=== PATIENT | female | born 1985 | race Caucasian/White ===

== ENCOUNTER 2020-10-06 11:19 | Observation (INO) ==
[2020-10-06 12:42] LABS: Amorphous Sediment,Urine Few per hpf (None-Few); Bacteria,Urine Few per hpf (None-Few); Bilirubin,Urine Negative (Negative); Blood,Urine Negative (Negative); Clarity,Urine Turbid (Clear); Color,Urine Light-Yellow (Yellow); Glucose,Urine (UA) Normal (Normal); Ketones,Urine Negative (Negative); Leukocyte Esterase,Urine Negative (Negative); Mucus,Urine Few per lpf (None-Few); Nitrite,Urine Negative (Negative); PH,Urine 6.5 pH Units (5.0-8.0); Protein,Urine Negative (Neg-Trace); RBC,Urine 0-3 per hpf (0-3); Specific Gravity,Urine 1.013 (1.010-1.025); Squamous Epithelial Cell,Urine Moderate per hpf (None-Few); Urobilinogen,Urine Normal (Normal); WBC,Urine 0-3 per hpf (0-3)
[2020-10-06 13:17] LABS: Basophils % 0.4 %; Eosinophils # 0.1 K/mcL (0.0-0.6); Eosinophils % 1.2 %; Hematocrit 36.2 % (35.3-44.9); Hemoglobin 12.2 g/dL (11.5-15.4); Immature Granulocytes % 0.7 % (0-4); Lymphocytes % 22.7 %; Mean Corpuscular HGB Conc 33.7 g/dL (31.6-35.5); Mean Corpuscular Hemoglobin 29.7 pg (28.0-33.3); Mean Corpuscular Volume 88.1 fL (83.0-100.0); Mean Platelet Volume 11.5 fL (9.4-12.4); Monocytes # 0.8 K/mcL (0.0-1.3); Neutrophils # 5.7 K/mcL (1.6-8.9); Platelet Count 193 K/mcL (140-400); Red Blood Count 4.11 M/mcL (3.82-4.97); Red Cell Distribution Width 14.7 % (11.5-14.5); White Blood Count 8.6 K/mcL (4.3-11.1)
[2020-10-06 13:32] LABS: Alanine Aminotransferase 10 Units/L (7-52); Aspartate Amino Transferase 15 Units/L (13-39); BUN/Creatinine Ratio 9 (6-26); Blood Urea Nitrogen 4 mg/dL (6-20); Lactate Dehydrogenase 145 Units/L (140-271); Platelet Estimate Normal (Normal); Uric Acid 3.8 mg/dL (2.3-7.6); eGFR For African Americans > 60 (> 60); eGFR For Non-African Americans > 60 (> 60)
[2020-10-06 18:04] LABS: Protein/Creatinine Ratio,Urine 0.22 mg/mg (0.00-0.20)
[2020-10-06] MEDS ORDERED: Ringers Solution, Lactated 1,000 ML ONE (18:34)
[2020-10-06] MEDS ORDERED: NIFEdipine Immed Rel 10 MG CAPSULE PO ONE (18:51)
[2020-10-06] MEDS ORDERED: Ringers Solution, Lactated 1,000 ML IVC SCH (19:00)
[2020-10-06] MEDS ORDERED: Betamethasone Acet/SodPhos 30 MG/5 ML VIAL IM SCH (19:00)
== END 2020-10-06 21:50 | disposition home or self-care (01) ==
LOC: 1NENULAB
PROVIDERS: ADMIT Registered Nurse; ATTEND Registered Nurse

== ENCOUNTER 2020-10-07 19:09 | Observation (INO) ==
[2020-10-07] MEDS ORDERED: Betamethasone Acet/SodPhos 30 MG/5 ML VIAL IM SCH (19:45)
== END 2020-10-07 19:30 | disposition home or self-care (01) ==
LOC: 1NENULAB
PROVIDERS: ADMIT Advanced Practice Midwife; ATTEND Advanced Practice Midwife

== ENCOUNTER 2020-10-27 03:03 | Inpatient (IN) ==
[2020-10-27] MEDS ORDERED: Ringers Solution, Lactated 1,000 ML ONE ×2 (03:19→04:10)
[2020-10-27] MEDS ORDERED: Metoclopramide 10 MG/2 ML VIAL ONE (04:09)
[2020-10-27] MEDS ORDERED: Famotidine 20 MG/2 ML VIAL ONE (04:09)
[2020-10-27] MEDS ORDERED: *HR* Morphine Sulfate/PF 10 MG/10 ML AMPUL ONE (04:22)
[2020-10-27] MEDS ORDERED: *HR* Propofol 200 MG/20 ML VIAL IVP ONE (04:22)
[2020-10-27] MEDS ORDERED: *HR* FentaNYL (PF) 100 MCG/2 ML VIAL ONE (04:22)
[2020-10-27] MEDS ORDERED: *HR* Rocuronium Bromide 50 MG/5 ML VIAL ONE (04:31)
[2020-10-27] MEDS ORDERED: Acetaminophen IV 1,000 MG/100 ML BAG IVPB ONE (04:33)
[2020-10-27] MEDS ORDERED: Gentamicin 80 MG/2 ML VIAL IM ONE (04:42)
[2020-10-27] MEDS ORDERED: Clindamycin 900 MG/50 ML 900 MG/50 ML IV.SOLN IVPB ONE (04:42)
[2020-10-27] MEDS ORDERED: Oxytocin 20 units/ LR 1000 mL 20 UNIT/1,000 ML BAG IVC ONE ×2 (04:46→05:38)
[2020-10-27] MEDS ORDERED: Ketorolac 30 MG/ML VIAL ONE (04:55)
[2020-10-27] MEDS ORDERED: Ondansetron 4 MG/2 ML VIAL ONE (04:55)
[2020-10-27] MEDS ORDERED: Ropivacaine/PF 0.2% 20 ML VIAL ONE (05:11)
[2020-10-27] MEDS ORDERED: Neostigmine Methylsulfate 3 MG/3 ML SYRINGE ONE (05:34)
[2020-10-27] MEDS ORDERED: Ringers Solution, Lactated 1,000 ML IVC ONE (05:38)
[2020-10-27] MEDS ORDERED: Metoclopramide 10 MG/2 ML VIAL IVP ONE (05:38)
[2020-10-27] MEDS ORDERED: Famotidine 20 MG/2 ML VIAL IVP ONE (05:38)
[2020-10-27] MEDS ORDERED: Metoclopramide 10 MG/2 ML VIAL IVP PRN (05:42)
[2020-10-27] MEDS ORDERED: Simethicone 80 MG TAB.CHEW PO PRN (05:42)
[2020-10-27] MEDS ORDERED: Rho Immune Globulin 1,500 UNIT SYRINGE IM ONE (05:42)
[2020-10-27] MEDS ORDERED: Ondansetron 4 MG/2 ML VIAL IVP PRN (05:42)
[2020-10-27] MEDS ORDERED: Ringers Solution, Lactated 1,000 ML IVC SCH (05:45)
[2020-10-27] MEDS ORDERED: Oxytocin 20 units/ LR 1000 mL 20 UNIT/1,000 ML BAG IVC SCH ×2 (05:45)
[2020-10-27] MEDS ORDERED: SODIUM CHLORIDE 0.9% IVPB ONE (06:00)
[2020-10-27] MEDS ORDERED: GENTAMICIN IVPB ONE (06:00)
[2020-10-27 06:06] LABS: Influenza A PCR Negative (Negative); Influenza B PCR Negative (Negative); Resp. Syncytial Virus PCR Negative (Negative); SARS-CoV-2 by PCR (In House) Negative (Negative)
[2020-10-27] MEDS ORDERED: *HR* OxyCODONE Immed Rel 5 MG TABLET PO PRN (06:24)
[2020-10-27] MEDS ORDERED: *HR* FentaNYL (PF) 100 MCG/2 ML VIAL IVP PRN (06:24)
[2020-10-27] MEDS: Ibuprofen 600 MG TABLET PO SCH ×3 (08:03→19:58)
[2020-10-27] MEDS: cephALEXin 500 MG CAPSULE PO SCH ×2 (10:16→19:59)
[2020-10-27] MEDS: metroNIDAZOLE 500 MG TABLET PO SCH ×2 (10:16→19:59)
[2020-10-27] MEDS: Prenatal Vit/FA 1 EACH TABLET PO SCH (10:16)
[2020-10-28] MEDS: Ibuprofen 600 MG TABLET PO SCH ×4 (00:40→20:32)
[2020-10-28 05:44] LABS: Platelet Estimate Normal (Normal); Reactive Lymphocytes Present (Not Present)
[2020-10-28 06:25] LABS: Eosinophils # 0.6 K/mcL (0.0-0.6); Hematocrit 29.2 % (35.3-44.9); Hemoglobin 9.5 g/dL (11.5-15.4); Lymphocytes # 1.7 K/mcL (0.6-4.6); Mean Corpuscular HGB Conc 32.5 g/dL (31.6-35.5); Mean Corpuscular Volume 92.1 fL (83.0-100.0); Monocytes # 0.9 K/mcL (0.0-1.3); Neutrophils # 7.5 K/mcL (1.6-8.9); Red Blood Count 3.17 M/mcL (3.82-4.97); White Blood Count 10.7 K/mcL (4.3-11.1)
[2020-10-28 06:26] LABS: Mean Platelet Volume 11.9 fL (9.4-12.4); Platelet Count 170 K/mcL (140-400); Red Cell Distribution Width 16.3 % (11.5-14.5)
[2020-10-28] MEDS: metroNIDAZOLE 500 MG TABLET PO SCH ×3 (09:07→20:33)
[2020-10-28] MEDS: Prenatal Vit/FA 1 EACH TABLET PO SCH (09:07)
[2020-10-28] MEDS: cephALEXin 500 MG CAPSULE PO SCH ×3 (09:07→20:33)
[2020-10-29] MEDS: Ibuprofen 600 MG TABLET PO SCH ×3 (02:07→14:35)
[2020-10-29] MEDS: Prenatal Vit/FA 1 EACH TABLET PO SCH (08:08)
[2020-10-29 08:23] VITALS: BP 128/79; PULSE 83; TEMP 98; O2SAT 97
== END 2020-10-29 15:25 | disposition home or self-care (01) | DRG 539 ==
LOC: 1NENULAB 03:03 → 1NENUOBS 09:48
PROVIDERS: ADMIT Obstetrics & Gynecology; ATTEND Obstetrics & Gynecology